=== PATIENT | female | born 1985 | race Caucasian/White ===

== ENCOUNTER 2021-06-24 22:25 | Emergency (ER) | payer OTHER | END 2021-06-25 09:11 | disposition other institution (70) | LOC: FER 22:25 | DX: T18.128A Food in esophagus causing other injury, initial encounter (principal); F17.200 Nicotine dependence, unspecified, uncomplicated; Z20.822 Contact with and (suspected) exposure to COVID-19 | CPT/HCPCS: 71046; C9113; J1610; J2405; U0002 ==